=== PATIENT | male | born 1980 | race Caucasian/White ===

== ENCOUNTER 2020-07-06 19:39 | Observation (INO) ==
[2020-07-06 20:06] LABS: Basophils # 0.1 K/mcL (0.0-0.2); Basophils % 0.9 %; Eosinophils # 0.2 K/mcL (0.0-0.6); Eosinophils % 1.3 %; Hematocrit 44.2 % (37.5-50.1); Hemoglobin 15.4 g/dL (12.9-16.9); Immature Granulocytes % 1.6 % (0-4); Lymphocytes # 4.2 K/mcL (0.6-4.6); Lymphocytes % 26.7 %; Mean Corpuscular HGB Conc 34.8 g/dL (31.6-35.5); Mean Corpuscular Hemoglobin 30.9 pg (28.0-33.3); Mean Corpuscular Volume 88.6 fL (83.0-100.0); Mean Platelet Volume 9.3 fL (9.4-12.4); Monocytes % 6.3 %; Neutrophils # 9.9 K/mcL (1.6-8.9); Platelet Count 294 K/mcL (140-400); Red Blood Count 4.99 M/mcL (4.19-5.50); Red Cell Distribution Width 13.5 % (11.5-14.5); Segmented Neutrophils % 63.2 %; White Blood Count 15.6 K/mcL (4.3-11.1)
[2020-07-06 20:13] LABS: INR 1.1; Prothrombin Time 12.4 Seconds (9.4-12.1)
[2020-07-06 20:16] LABS: Activated Partial Thrombo Time 29.6 Seconds (26.0-36.0)
[2020-07-06 20:31] LABS: Alanine Aminotransferase 41 Units/L (7-52); Albumin 4.2 g/dL (3.5-5.7); Albumin/Globulin Ratio 1.3 (1.1-2.2); Alkaline Phosphatase 56 Units/L (34-104); Aspartate Amino Transferase 27 Units/L (13-39); BUN/Creatinine Ratio 13 (6-26); Bilirubin,Total 0.5 mg/dL (0.3-1.0); Blood Urea Nitrogen 13 mg/dL (6-20); Calcium 9.2 mg/dL (8.6-10.3); Carbon Dioxide 21 mEq/L (23-29); Chloride 105 mEq/L (98-107); Globulin 3.2 g/dL (2.4-3.5); Glucose 107 mg/dL (70-105); Osmolality,Calculated 287 (280-300); Potassium 3.5 mEq/L (3.5-5.1); Sodium 138 mEq/L (136-145); Total Protein 7.4 g/dL (6.4-8.9); Troponin I < 0.03 ng/mL (< 0.04); eGFR For African Americans > 60 (> 60); eGFR For Non-African Americans > 60 (> 60)
[2020-07-06 20:37] LABS: Platelet Estimate Normal (Normal); Reactive Lymphocytes Present (Not Present)
[2020-07-06] MEDS ORDERED: Pantoprazole 80 MG in 0.9 % Sodium Chloride 50 ML IVPB ONE (20:38)
[2020-07-06] MEDS ORDERED: 0.9 % Sodium Chloride 1,000 ML IVC ONE (20:38)
[2020-07-06] MEDS ORDERED: Isovue-370 500 ML BOTTLE IVP ONE (20:38)
[2020-07-06] MEDS ORDERED: Ondansetron 4 MG/2 ML VIAL IVP ONE (20:40)
[2020-07-06] MEDS ORDERED: Naloxone 0.4 MG/ML INJ IVP PRN (22:18)
[2020-07-06] MEDS ORDERED: Ondansetron 4 MG/2 ML VIAL IVP PRN (22:18)
[2020-07-06] MEDS ORDERED: Acetaminophen 325 MG TABLET PO PRN (22:18)
[2020-07-07] MEDS: Pantoprazole 40 MG in 0.9 % Sodium Chloride Mini Bag 100 ML IVC SCH ×3 (00:55→08:28)
[2020-07-07] MEDS: 0.9 % Sodium Chloride 1,000 ML IVC SCH ×2 (03:24→15:22)
[2020-07-07 06:16] LABS: Basophils # 0.1 K/mcL (0.0-0.2); Basophils % 1.2 %; Eosinophils # 0.2 K/mcL (0.0-0.6); Immature Granulocytes % 1.7 % (0-4); Lymphocytes # 3.6 K/mcL (0.6-4.6); Lymphocytes % 37.8 %; Mean Corpuscular HGB Conc 34.5 g/dL (31.6-35.5); Mean Corpuscular Hemoglobin 30.9 pg (28.0-33.3); Mean Corpuscular Volume 89.5 fL (83.0-100.0); Mean Platelet Volume 9.5 fL (9.4-12.4); Monocytes # 0.7 K/mcL (0.0-1.3); Monocytes % 7.2 %; Neutrophils # 4.7 K/mcL (1.6-8.9); Platelet Count 222 K/mcL (140-400); Red Blood Count 4.47 M/mcL (4.19-5.50); Red Cell Distribution Width 13.8 % (11.5-14.5); Segmented Neutrophils % 50.1 %; White Blood Count 9.4 K/mcL (4.3-11.1)
[2020-07-07 06:18] LABS: Hemoglobin 13.8 g/dL (12.9-16.9)
[2020-07-07 06:23] LABS: INR 1.1; Prothrombin Time 12.2 Seconds (9.4-12.1)
[2020-07-07 06:48] LABS: BUN/Creatinine Ratio 13 (6-26); Blood Urea Nitrogen 12 mg/dL (6-20); Calcium 8.6 mg/dL (8.6-10.3); Carbon Dioxide 26 mEq/L (23-29); Chloride 107 mEq/L (98-107); Glucose 115 mg/dL (70-105); Magnesium 1.9 mg/dL (1.6-2.6); Osmolality,Calculated 291 (280-300); Potassium 3.7 mEq/L (3.5-5.1); Sodium 140 mEq/L (136-145); eGFR For African Americans > 60 (> 60); eGFR For Non-African Americans > 60 (> 60)
[2020-07-07] MEDS ORDERED: Pantoprazole 40 MG VIAL IVP SCH (11:15)
[2020-07-07] MEDS ORDERED: *HR* Propofol 500 MG/50 ML BOTTLE IVC ONE (11:29)
[2020-07-07] MEDS ORDERED: 0.9 % Sodium Chloride 10 ML PF VIAL IVP ONE (11:29)
[2020-07-07] MEDS ORDERED: Lidocaine -MPF 2% 5 ML VIAL INFILT ONE (11:29)
[2020-07-07] MEDS ORDERED: *HR* Succinylcholine 200 MG/10 ML VIAL IVP ONE (11:29)
[2020-07-07] MEDS: Pantoprazole 40 MG VIAL IVP SCH (23:19)
[2020-07-07] MEDS: Venlafaxine XR (24 HR) 75 MG CAP.ER.24H PO SCH (23:54)
[2020-07-07] MEDS: *HR* HYDROcodone/Acet 5/325 mg TABLET PO PRN (23:54)
[2020-07-07] MEDS: Venlafaxine XR (24 HR) 150 MG CAP.ER.24H PO SCH (23:54)
[2020-07-07] MEDS: Pregabalin 50 MG CAPSULE PO SCH (23:54)
[2020-07-08 03:23] LABS: Basophils # 0.1 K/mcL (0.0-0.2); Basophils % 1.1 %; Eosinophils # 0.2 K/mcL (0.0-0.6); Eosinophils % 1.9 %; Hemoglobin 13.9 g/dL (12.9-16.9); Immature Granulocytes % 1.2 % (0-4); Lymphocytes # 3.5 K/mcL (0.6-4.6); Lymphocytes % 33.4 %; Mean Corpuscular HGB Conc 33.9 g/dL (31.6-35.5); Mean Corpuscular Hemoglobin 31.2 pg (28.0-33.3); Mean Corpuscular Volume 92.1 fL (83.0-100.0); Mean Platelet Volume 9.3 fL (9.4-12.4); Monocytes # 0.7 K/mcL (0.0-1.3); Monocytes % 6.5 %; Neutrophils # 5.9 K/mcL (1.6-8.9); Platelet Count 212 K/mcL (140-400); Red Blood Count 4.45 M/mcL (4.19-5.50); Red Cell Distribution Width 13.4 % (11.5-14.5); Segmented Neutrophils % 55.9 %; White Blood Count 10.6 K/mcL (4.3-11.1)
[2020-07-08 03:44] LABS: BUN/Creatinine Ratio 13 (6-26); Blood Urea Nitrogen 11 mg/dL (6-20); Calcium 8.8 mg/dL (8.6-10.3); Carbon Dioxide 24 mEq/L (23-29); Chloride 106 mEq/L (98-107); Glucose 97 mg/dL (70-105); Osmolality,Calculated 285 (280-300); Potassium 3.8 mEq/L (3.5-5.1); Sodium 138 mEq/L (136-145); eGFR For African Americans > 60 (> 60); eGFR For Non-African Americans > 60 (> 60)
[2020-07-08] MEDS: Venlafaxine XR (24 HR) 75 MG CAP.ER.24H PO SCH (09:28)
[2020-07-08] MEDS: Pantoprazole 40 MG VIAL IVP SCH (09:28)
[2020-07-08] MEDS: Pregabalin 50 MG CAPSULE PO SCH (09:28)
[2020-07-08] MEDS: Venlafaxine XR (24 HR) 150 MG CAP.ER.24H PO SCH (09:28)
[2020-07-08 09:34] VITALS: BP 137/83
[2020-07-08] MEDS: *HR* HYDROcodone/Acet 5/325 mg TABLET PO PRN (09:36)
== END 2020-07-08 11:30 | disposition home or self-care (01) ==
LOC: 3NENU 19:39 → EMEROOARM 19:39 → SUATTDRO 23:19 → 2NENU 23:34
PROVIDERS: ADMIT Internal Medicine; ATTEND Student in an Organized Health Care Education/Training Program